=== PATIENT | female | born 1950 | race Two or more races ===

== ENCOUNTER 2024-09-28 11:15 | Emergency (ER) | payer OTHER ==
[~2024-09-28] VITALS: Ht 154.9 cm; Wt 65.8 kg
[2024-09-28] MEDS ORDERED: MELO7.5T12 PO (11:37)
[2024-09-28 12:24] VITALS: BP 140/87; TEMP 98.7; O2SAT 98
== END 2024-09-28 12:25 | disposition home or self-care (01) ==
LOC: ER 11:15
DX: M25.562 Pain in left knee (principal); E11.9 Type 2 diabetes mellitus without complications; I10 Essential (primary) hypertension; Z79.1 Long term (current) use of non-steroidal anti-inflammatories (NSAID); Z96.653 Presence of artificial knee joint, bilateral
CPT/HCPCS: 73560; A4606; A4663